=== PATIENT | male | born 1985 | race African-American/Black ===

== ENCOUNTER 2021-10-25 00:12 | Emergency (ER) | payer SELFPAY ==
[~2021-10-25] VITALS: Ht 180.3 cm; Wt 109.0 kg
[2021-10-25] MEDS ORDERED: IBUPROFEN 600MG TABLET PO STA (01:08)
[2021-10-25] MEDS ORDERED: IBUP-2029 PO (03:29)
[2021-10-25 03:36] VITALS: BP 115/66
== END 2021-10-25 03:39 | disposition home or self-care (01) ==
LOC: ER 00:12
DX: M25.512 Pain in left shoulder (principal); M25.552 Pain in left hip
CPT/HCPCS: 71045; 73030; 73502; 73590; 99284